=== PATIENT | female | born 1980 | race Caucasian/White ===

== ENCOUNTER → 2020-08-16 10:58 | Outpatient (BNVA) | payer OTHER, SELFPAY | PROVIDERS: PCP Internal Medicine; Visit Provider Anesthesiology ==

== ENCOUNTER 2020-10-04 11:00 | Outpatient (RCR) | payer OTHER, SELFPAY ==
--- NOTE | 2020-09-14 14:56 | MHC.PT.EP ---
[facility] [place] [facility] [place] [facility] [place] Office [address] [phone] F: [phone] F: [phone] F: [phone] F: [phone] Physical Therapy Plan of Care Date of Evaluation: Date of Surgery: n/a Diagnosis: cervicalgia Assessment: Patient is a 40 year old R handed female who presents with s/s consistent with cervicalgia. 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 Patient past medical history is non-contributory. Current impairments include pain, ROM, strength, safety, posture, independence, activity tolerance and functional mobility. Functional limitations include decreased ability to lift, carry, reach, sleep, work, and perform weight bearing activities.. Patient is motivated with good rehab potential. Skilled PT will address impairments and functional limitations in order to achieve goals. 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 Manual therapy to restore motion and function. Therapeutic exercise to improve strength and flexibility. Neuromuscular re-education for posture and balance. Therapeutic activities to return to functional activities of daily living. Electronically signed by: Eric Dupree, PT Please sign and return to therapist. Thank you for your referral.
--- NOTE | 2020-10-05 08:52 | MHC.PT.DC ---
[facility] [place] Office [place] Office [place] Office [address]assi Alan 140 [facility] [phone] F: [phone] F: [phone] F: [phone] F: [phone] Physical Therapy Discharge Report Diagnosis: cervicalgia Date of Surgery: n/a Date of Evaluation: 09/14/20 Date of Discharge: 10/04/20 Treatments to Date: 6 Cancellations to Date: 0 No Shows to Date: 0 Discharge Status: Achieved Goals Improved Function Independent with HEP Discharge Summary: Pt progressed well over the course of skilled PT making progress on impairments and functional limitations resulting in an improved quality of life. All goals Met!! Pt is I with HEP and appropriate to d/c to HEP at this time. Electronically signed by: Eric Dupree, PT Please sign and return to therapist. Thank you for your referral.
== END 2020-10-07 09:45 | disposition home or self-care (01) ==
LOC: HO.PTCHIC 11:00
PROVIDERS: PCP Internal Medicine; Visit Provider Anesthesiology
DX: M54.2 Cervicalgia (principal)
CPT/HCPCS: 97110; 97140; 97162

== ENCOUNTER 2021-08-06 08:00 | Outpatient (REF) | payer OTHER, SELFPAY ==
[2021-08-06 11:42] LABS: MANUAL DIFF FLAG NO
[2021-08-06 11:56] LABS: Basophils Percent Auto 0.5 % (0-2); Eosinophils Absolute Auto 0.1 X10*3/uL (0.0-0.4); Eosinophils Percent Auto 1.7 % (0-4); Hematocrit 35.4 % (37.0-47.0); Hemoglobin 11.5 g/dl (12.0-16.0); Imm Gran Abs Auto 0.02 X10*3/uL (0.00-0.03); Imm Gran Pct Auto 0.3 % (0.0-0.4); Lymphocytes Absolute Auto 2.3 X10*3/uL (1.2-4.9); Lymphocytes Percent Auto 36.1 % (20-40); Mean Corpuscular HGB Conc 32.5 g/dl (31.0-35.0); Mean Corpuscular Hemoglobin 30.2 pg (27.0-33.0); Mean Corpuscular Volume 92.9 fL (80.0-98.0); Mean Platelet Volume 10.9 fL (9.4-12.3); Monocytes Absolute Auto 0.5 X10*3/uL (0.1-1.2); Monocytes Percent Auto 7.1 % (2-11); Neutrophils Absolute Auto 3.5 x10*3/uL (2.0-8.3); Neutrophils Percent Auto 54.3 % (45-73); Platelet Count 232 X10*3/uL (160-400); Red Blood Count 3.81 X10*6/uL (4.20-5.50); Red Cell Distribution Width 14.8 % (11.0-16.0); White Blood Count 6.5 X10*3/uL (4.8-10.8)
[2021-08-06 12:18] LABS: Alanine Aminotransferase 12 U/L (0-31); Alkaline Phosphatase 53 U/L (39-117); Anion Gap 11 (12-20); Aspartate Amino Transferase 14 U/L (5-31); Bilirubin Total 1.2 mg/dL (0.0-1.0); Blood Urea Nitrogen 10 mg/dL (9-16); Carbon Dioxide 26 mmol/L (22-29); Chloride 104 mmol/L (96-108); Cholesterol 153 mg/dL; Estimated Glomerular Filt Rate > 60; Glucose Fasting 98 mg/dL (60-99); HDL Cholesterol 48 mg/dL; LDL Cholesterol Calculated 91 mg/dl; Potassium 3.4 mmol/L (3.3-5.1); Sodium 138 mmol/L (135-145); Total Protein 7.4 g/dL (6.5-8.0); Triglycerides 70 mg/dL
[2021-08-06 12:23] LABS: Thyroid Stimulating Hormone 3.49 uIU/mL (0.32-4.0)
== END 2021-08-06 08:01 | disposition home or self-care (01) ==
LOC: HO.HMGCLDS 08:00
PROVIDERS: PCP Internal Medicine; Visit Provider Internal Medicine
DX: Z00.00 Encounter for general adult medical examination without abnormal findings (principal); M54.2 Cervicalgia; E78.5 Hyperlipidemia, unspecified; L65.9 Nonscarring hair loss, unspecified; E55.9 Vitamin D deficiency, unspecified
CPT/HCPCS: 36415; 80053; 80061; 82306; 84443; 85025

== ENCOUNTER 2024-10-13 17:23 | Outpatient (AMB) | payer OTHER, SELFPAY ==
[2024-10-13 17:31] VITALS: BP 102/70; BMI 27.8
--- NOTE | 2024-10-13 17:31 | MHC.PC.OV ---
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 Required: No Accompanied by: Self / Same As Patient Allergies No Known Allergies Allergy (Verified 10/13/24 17:36) Medication List - Last Reconciled 10/13/24 by Ada Villatoro MD No Known Home Meds Tobacco use date assessed: 10/13/24 Dental Screening Dental Screen Date: 10/13/24 Did you have a dental visit in the last 12 months?: Yes Did you have a dental problem in the last 6 months where you did not have access to dental care?: No Was dental information given to patient?: Patient has dentist HPI HPI Comments History of Present Illness Details The patient is a 44-year-old female presenting with an annual physical examination. She reports right knee and right elbow pain, with the latter causing intermittent discomfort. The patient has a long-standing history of easy bruising, present since childhood. She also experiences anxiety, but denies any current depression. She does not smoke and drinks beer occasionally. There is no mention of specific events leading to the joint pain. - Mammography referral due to absence of previous mammogram records - Papanicolaou test recommended, as the patient missed the previous one - Laboratory tests to include hemoglobin, platelet count, cholesterol, glucose, kidney, and liver function - Referral to a staffing consultant - Administration of Tdap vaccine [facility] Medical History (Updated 10/13/24 @ 17:49 by Ada Villatoro MD) SONJA (generalized anxiety disorder) Mild recurrent major depression Hair loss Encounter for physical examination Cervicalgia Neck pain Hypovitaminosis D Surgical History History of abdominoplasty History of section History of tubal ligation Family History Father Medical history unknown Mother Diabetes Hypertension Rheumatoid arthritis Sister In good health Maternal Uncle Cancer Social History Alcohol intake: current Alcohol intake frequency: holidays/special occasions only Alcohol type: beer and wine Patient Tobacco Use Status: Never used Tobacco e-Cigarette/Vaping Use: Never Used Second Hand Smoke Exposure: No service: No Current occupational status: unemployed Cognitive needs: No Hearing needs: No Vision needs: No Questionnaire PHQ-9 Over the last 2 weeks, how often have you been bothered by any of the following problems? 1. Little interest or pleasure in doing things: not at all 2. Feeling down, depressed, or hopeless: not at all 3. Trouble falling or staying asleep, or sleeping too much: not at all 4. Feeling tired or having little energy: not at all 5. Poor appetite or overeating: not at all 6. Feeling bad about yourself - or that you are a failure or have let yourself or your family down: not at all 7. Trouble concentrating on things, such as reading the newspaper or watching television: not at all 8. Moving or speaking so slowly that other people could have noticed. Or the opposite - being so fidgety or restless that you have been moving around a lot more than usual: not at all 9. Thoughts that you would be better off or of hurting yourself in some way: not at all Total score: 0 Depression Screening Interpretation: Negative Depression Screening Done: Yes 12786 - PHQ-9 Billing: Yes Source: Developed by Drs. Dhruv Green, Nevin Almeida, Jose Gonsalves and colleagues, with an educational christine from [employer]. Thrive Questionnaire Date Thrive assessed: 10/06/24 I am a: Patient What is your living situation today?: I have a steady place to live Within the past 12 months, did the food you bought not last and you didn't have the money to get more?: Never true Within the past 12 months, did you worry whether your food would run out before you got money to buy more?: Never true Do you have trouble paying for medicines?: No Do you have trouble getting transportation to medical appointments?: No Do you have trouble paying your heating and electricity bill?: No Do you have trouble taking care of your child, family member or friend?: No Do you have trouble with day-to-day activities such as bathing, preparing meals, shopping, managing finances, etc.?: No Are you currently unemployed and looking for a job?: No Are you interested in more education?: No Please select the resources that you would like help with: None Currently or been in a relationship where the following occur: No concerns reported THRIVE Score: 0 AUDIT C Alcohol Use Questionnaire (AUDIT-C) 1. How often do you have a drink containing alcohol?: Monthly or less 2. How many drinks containing alcohol do you have on a typical day when you are drinking?: 1 or 2 3. How often do you have six or more drinks on one occasion?: Never Total Score: 1 Score Reviewed/Action Taken: No SONJA-7 AMB Questionnaire SONJA-7 Date SONJA - 7 assessed: 10/13/24 Feeling nervous, anxious, or on edge: 1 = Several days Not being able to stop or control worryin = Several days Worrying too much about different things: 1 = Several days Trouble relaxin = Several days Being so restless that it is hard to sit still: 1 = Several days Becoming easily annoyed or irritable: 1 = Several days Feeling afraid as if something awful might happen: 1 = Several days Total SONJA-7 score (0-4 normal; 5-9 mild; 10-14 moderate; 15-21 severe): 7 Source: Developed by Drs. Dhruv Green, Nevin Almeida, Jose Gonsalves and colleagues, with an educational christine from [employer]. SONJA-7 Assessment Billing SONJA-7 Assessment Tool: SONJA-7 Assessment 71919 Review of Systems Const All systems reviewed & are unremarkable except as noted in HPI and below Card Denies chest pain at rest, Denies chest pain with activity, Denies edema, Denies irregular heart rhythm, Denies claudication, Denies dyspnea, Denies dyspnea on exertion, Denies orthopnea, Denies paroxysmal nocturnal dyspnea and Denies slow heart rate Resp Denies cough, Denies dyspnea and Denies dyspnea on exertion GI Denies abdominal pain, Denies change in bowel habits, Denies excessive flatus, Denies nausea and Denies vomiting Denies urinary incontinence, Denies urinary hesitancy and Denies urinary urgency Musc Denies abnormal gait, Denies atrophy, Denies deformity and Denies limited range of motion Skin/Breast Denies bleeding lesions, Denies changing lesions and Denies rash Neuro Denies abnormal gait and Denies lack of coordination Physical exam (Primary Care) Vital Signs: Last Vital Signs BP 102/70 10/13/24 17:31 BMI result Body Mass Index 27.8 Tobacco/Smoking Status: Tobacco use Status Tobacco use date assessed 10/13/24 10/13/24 17:37 Patient Tobacco Use Status Never used Tobacco 10/13/24 17:37 e-Cigarette/Vaping Use Never Used 10/13/24 17:37 PHQ-9: PHQ-9 Score PHQ-9: Total score 0 10/13/24 17:44 Depression Screening Interpretation: Negative Thrive Assessment: Date of Thrive Assessment Date Thrive assessed 10/06/24 10/13/24 17:37 Currently or been in a relationship where the following occur: No concerns reported HENMT Head: Yes normal to inspection, Yes normocephalic and Yes atraumatic Ears: external ears normal Eyes General: appearance normal, both eyes and all related structures Eyelids: Yes eyelids normal Conjunctivae: conjunctivae normal Neck Neck: Yes normal visual inspection and Yes supple Resp Effort & Inspection: normal respiratory effort Auscultation: clear to auscultation bilaterally Cardio Jugular venous distension: no JVD Rate: regular rate Rhythm: regular rhythm Heart sounds: S1 normal heart sound present and S2 normal heart sound present GI Inspection: Yes normal to inspection Palpation (GI): Soft to palpation and nontender Auscultation: normal bowel sounds Skin General skin exam: no rashes or lesions noted Neuro General: no focal motor deficits Extrem General: Yes full ROM Psych Appearance: grossly normal Immunizations Boostrix Tdap 2.5 Lf unit-8 mcg-5 Lf/0.5 mL intramuscular syringe Performing Provider: Ada Villatoro MD [facility] Administered by: FRANK Rodrigez on 10/13/24 17:45 Dose Route Admin Location Dispensed Lot Number Expiration Date [facility] [employer] 0.5 mL IM Left Deltoid 0.5 mL [id number] 01/12/27 86846-681-80 XYDO VIS Given Date VIS Provided VIS Publication Date 10/13/24 Single Vaccine 24 Eligibility Eligibility Date Funding Source Not [facility] Eligible 10/13/24 Private Coding Level of Care Code Est Pt Level 3 (23939) Est Pt Prev Care 40-64y(97183) Diagnoses Encounter for physical examination Z00.00 Screening for cervical cancer Z12.4 Right elbow pain M25.521 Right knee pain M25.561 Easy bruising R23.3 Additional Codes SONJA-7 Assessment Billing - SONJA-7 Assessment Tool: SONJA-7 Assessment 80793 ([id number]) PHQ-9 - 20207 - PHQ-9 Billing: Yes ([id number]) Time Spent (min) 35 Assessment & Plan Assessment & Plan (1) Encounter for physical examination: Code(s): Z00.00 - Encounter for general adult medical examination without abnormal findings Category: Medical (2) Screening for cervical cancer: Code(s): Z12.4 - Encounter for screening for malignant neoplasm of cervix Category: Medical (3) Right elbow pain: Code(s): M25.521 - Pain in right elbow Category: Medical (4) Right knee pain: Code(s): M25.561 - Pain in right knee Category: Medical (5) Easy bruising: Code(s): R23.3 - Spontaneous ecchymoses Category: Medical Plan The patient's anxiety will be monitored, with lifestyle changes encouraged to manage her symptoms. Imaging studies will be conducted for the right knee and elbow pain to investigate any structural issues. A complete blood count with platelet analysis is planned due to the history of easy bruising. She will be referred for a mammogram and a gynecological examination to maintain health. The Tdap vaccine has been administered to update her immunizations. Patient was informed and verbally consented to the use of an ambient scribe for clinic note documentation during this visit. I discussed with the patient the importance of addressing her anxiety through lifestyle modifications and potential follow-up if symptoms persist. We reviewed the need for imaging studies for her joint pain and the laboratory tests to assess any hematological issues related to her easy bruising. I emphasized the necessity of completing overdue health maintenance screenings, including a mammogram and a Papanicolaou test. We also reviewed the benefits of the Tdap vaccine, which was administered during the visit. Orders: Orders MM tomosynthesis screening BI Today Z12.31 - Encounter for screening mammogram for malignant neoplasm of breast Comprehensive [place]. Panel Fast Today Z00.00 - Encounter for general adult medical examination without abnormal findings XR knee RT 2V Today M25.561 - Pain in right knee TDaP Immunization Today Z23 - Encounter for immunization Lipid Panel Today Z00.00 - Encounter for general adult medical examination without abnormal findings XR elbow RT 2V Today M25.521 - Pain in right elbow Complete Blood Count Auto Diff Today R23.3 - Spontaneous ecchymoses Thyroid Stimulating Hormone Today E66.3 - Overweight Referrals DEVOPS ENGINEER Referral Z12.4 - Encounter for screening for malignant neoplasm of cervix Patient Instructions: - Follow up for imaging studies for knee and elbow pain. - Complete recommended laboratory tests. - Schedule a mammogram and Papanicolaou test. - Maintain a healthy lifestyle to manage anxiety. - Return for any new or worsening symptoms.
== END 2024-10-13 17:39 | disposition home or self-care (01) ==
PROVIDERS: PCP Internal Medicine; Visit Provider Internal Medicine
DX: Z00.00 Encounter for general adult medical examination without abnormal findings (principal); M25.521 Pain in right elbow; M25.561 Pain in right knee; R23.3 Spontaneous ecchymoses; Z23 Encounter for immunization

== ENCOUNTER → 2024-10-13 17:23 | Outpatient (BNVA) | payer OTHER, SELFPAY | PROVIDERS: PCP Internal Medicine; Visit Provider Internal Medicine | DX: Z00.01 Encounter for general adult medical examination with abnormal findings (principal); Z23 Encounter for immunization; M25.521 Pain in right elbow; M25.561 Pain in right knee; R23.3 Spontaneous ecchymoses; Z13.30 Encounter for screening examination for mental health and behavioral disorders, unspecified; Z13.31 Encounter for screening for depression | CPT/HCPCS: 90471; 90715; 96127; 99212; 99396 ==

== ENCOUNTER 2024-10-15 07:49 | Outpatient (REF) | payer OTHER, SELFPAY ==
--- NOTE | ~2024-10-15 | XR_ITS ---
EXAMINATION: XR KNEE, RIGHT CLINICAL INFORMATION: M25.561 - Pain in right knee COMPARISON: None available. TECHNIQUE: Two views of the right knee. FINDINGS: No fracture or joint effusion. Alignment is anatomic. Joint spaces are maintained. No abnormal soft tissue calcification. XR/XR knee RT 2V IMPRESSION: Normal right knee. Electronically signed by: Parminder Carreno MD 10/15/2024 03:30 PM EDT
--- NOTE | ~2024-10-15 | XR_ITS ---
EXAMINATION: XR ELBOW, RIGHT CLINICAL INFORMATION: M25.521 - Pain in right elbow COMPARISON: None available. TECHNIQUE: AP, lateral, and oblique views of the right elbow. FINDINGS: The bones and soft tissues are normal. No fracture or joint effusion. Alignment is anatomic. Joint spaces are maintained. XR/XR elbow RT min 3V IMPRESSION: Normal right elbow. Electronically signed by: Parminder Carreno MD 10/15/2024 03:30 PM EDT
[2024-10-15 10:22] LABS: MANUAL DIFF FLAG NO
[2024-10-15 10:32] LABS: Basophils Percent Auto 0.3 % (0-2); Eosinophils Absolute Auto 0.1 X10*3/uL (0.0-0.4); Eosinophils Percent Auto 0.9 % (0-4); Hematocrit 35.2 % (37.0-47.0); Hemoglobin 11.6 g/dl (12.0-16.0); Imm Gran Abs Auto 0.01 X10*3/uL (0.00-0.03); Imm Gran Pct Auto 0.1 % (0.0-0.4); Lymphocytes Absolute Auto 2.2 X10*3/uL (1.2-4.9); Lymphocytes Percent Auto 32.1 % (20-40); Mean Corpuscular Hemoglobin 30.2 pg (27.0-33.0); Mean Corpuscular Volume 91.7 fL (80.0-98.0); Mean Platelet Volume 10.9 fL (9.4-12.3); Monocytes Absolute Auto 0.5 X10*3/uL (0.1-1.2); Monocytes Percent Auto 6.7 % (2-11); Neutrophils Absolute Auto 4.1 x10*3/uL (2.0-8.3); Neutrophils Percent Auto 59.9 % (45-73); Platelet Count 225 X10*3/uL (160-400); Red Blood Count 3.84 X10*6/uL (4.20-5.50); Red Cell Distribution Width 13.3 % (11.0-16.0); White Blood Count 6.8 X10*3/uL (4.8-10.8)
[2024-10-15 11:04] LABS: Alanine Aminotransferase 11 U/L (0-31); Alkaline Phosphatase 57 U/L (39-117); Anion Gap 11 (12-20); Aspartate Amino Transferase 19 U/L (5-31); Bilirubin Total 0.7 mg/dL (0.0-1.0); Blood Urea Nitrogen 12 mg/dL (9-16); Calcium 8.9 mg/dL (8.4-10.2); Carbon Dioxide 23 mmol/L (22-29); Chloride 110 mmol/L (96-108); Cholesterol 141 mg/dL (<200); Estimated Glomerular Filt Rate > 60; Glucose Fasting 94 mg/dL (60-99); HDL Cholesterol 40 mg/dL (>40); LDL Cholesterol Calculated 92 mg/dL (<100); Potassium 3.6 mmol/L (3.3-5.1); Sodium 140 mmol/L (135-145); Total Protein 6.9 g/dL (6.5-8.0); Triglycerides 47 mg/dL (<150)
[2024-10-15 11:05] LABS: Thyroid Stimulating Hormone 2.76 uIU/mL (0.32-4.0)
== END 2024-10-15 07:50 | disposition home or self-care (01) ==
LOC: HO.HMGCX 07:49
PROVIDERS: PCP Internal Medicine; Visit Provider Internal Medicine
DX: Z00.00 Encounter for general adult medical examination without abnormal findings (principal); R23.3 Spontaneous ecchymoses; E66.3 Overweight; M25.561 Pain in right knee; M25.521 Pain in right elbow
CPT/HCPCS: 36415; 73080; 73560; 80053; 80061; 84443; 85025

== ENCOUNTER → 2024-10-15 14:27 | Outpatient (BNV) | payer OTHER, SELFPAY | PROVIDERS: PCP Internal Medicine; Visit Provider Radiology Diagnostic Radiology | DX: M25.521 Pain in right elbow (principal); M25.561 Pain in right knee | CPT/HCPCS: 73080; 73560 ==

== ENCOUNTER 2024-12-14 15:03 | Outpatient (REF) | payer OTHER, SELFPAY | END 2024-12-14 15:04 | disposition home or self-care (01) | LOC: HO.MAMMO 15:03 | PROVIDERS: PCP Internal Medicine; Visit Provider Internal Medicine | DX: Z12.31 Encounter for screening mammogram for malignant neoplasm of breast (principal) | CPT/HCPCS: 77063; 77067 ==

== ENCOUNTER → 2024-12-14 15:15 | Outpatient (BNV) | payer OTHER, SELFPAY | PROVIDERS: PCP Internal Medicine; Visit Provider Internal Medicine | DX: Z12.31 Encounter for screening mammogram for malignant neoplasm of breast (principal) | CPT/HCPCS: 77063; 77067 ==

== ENCOUNTER 2024-12-30 10:28 | Outpatient (REF) | payer OTHER, SELFPAY ==
--- NOTE | ~2024-12-30 | US_ITS ---
EXAMINATION: MM DIAGNOSTIC DIGITAL BREAST TOMOSYNTHESIS, LEFT Limited left breast ultrasound. CLINICAL INFORMATION: Call back from baseline screening for asymmetry in the retroareolar region slightly lateral right breast on CC view middle depth. COMPARISON: Mammography: [facility] on PACS. TECHNIQUE: Digital breast tomosynthesis is performed in both the craniocaudal and mediolateral oblique views along with computer-aided detection (CAD). Synthesized 2D images are generated from the tomosynthesis. FINDINGS: There are scattered areas of fibroglandular density (ACR BI-RADS breast composition Category b). Asymmetry retroareolar region slightly lateral breast on CC view persist on additional imaging projections and is a circumscribed oval mass. No suspicious calcifications or other abnormal findings. Targeted color Doppler ultrasound scanning in the upper outer quadrant demonstrates question adjacent minimally complicated cyst at 11:00 2 cm from the nipple measuring 3 x 2 x 2 mm this is a questionable correlate for the asymmetry on mammography. US/US breast RT limited mamm only IMPRESSION: 1. Right breast asymmetry lateral/retroareolar region middle depth on CC view without definite sonographic correlate. Recommend 6 month follow-up for further evaluation of stability. 2. Area of questioned adjacent minimally complicated cyst at 11:00 2 7 m from the nipple. Recommend 6 month follow-up ultrasound for further evaluation of stability. ASSESSMENT: BI-RADS BI-RADS 3 - Probably benign finding(s) - 6 month follow-up suggested RECOMMENDATION: 6 Month F/U Results were provided to the patient at time of visit by the technologist. This patient's information was entered into a reminder system with a target due date for their next mammogram. Electronically signed by: Ansley Beatty DO 12/30/2024 11:35 AM EDT
== END 2024-12-30 10:29 | disposition home or self-care (01) ==
LOC: HO.MAMMO 10:28
PROVIDERS: PCP Internal Medicine; Visit Provider Internal Medicine
DX: Z12.31 Encounter for screening mammogram for malignant neoplasm of breast (principal); N64.89 Other specified disorders of breast
CPT/HCPCS: 76642; 77061; 77065

== ENCOUNTER → 2024-12-30 10:30 | Outpatient (BNV) | payer OTHER, SELFPAY | PROVIDERS: PCP Internal Medicine; Visit Provider Internal Medicine | DX: N60.01 Solitary cyst of right breast (principal); R92.8 Other abnormal and inconclusive findings on diagnostic imaging of breast | CPT/HCPCS: 76642; 77061; 77065 ==